=== PATIENT | female | born 1950 | race Caucasian/White ===

== ENCOUNTER → 2023-07-16 07:17 | Outpatient (REF) | payer MEDICARE, OTHER, SELFPAY | LOC: RCS 07:17 | PROVIDERS: ATTENDING PHYSICIAN Internal Medicine Cardiovascular Disease; FAMILY PHYSICIAN Internal Medicine | DX: R00.2 Palpitations (principal); R06.02 Shortness of breath | CPT/HCPCS: 78452; 93017; A9500 ==

== ENCOUNTER 2023-08-04 06:09 | Day surgery (SDC) | payer MEDICARE, OTHER, SELFPAY ==
[2023-08-04] VITALS (12 sets, daily range): BP systolic 120–147; BP diastolic 72–84; BMI 25.8
[2023-08-04 06:43] LABS: Hematocrit 36.7 % (37.0-47.0); Hemoglobin 12.2 g/dL (12.0-16.0); Mean Corp Hgb Conc. 33.2 g/dL (33.0-37.0); Mean Corpuscular Hgb 30.1 pg (27.0-31.0); Mean Corpuscular Volume 90.6 fL (81.0-99.0); Mean Platelet Volume 8.5 fL (7.4-10.4); Platelet Count 295 10^3/uL (130-400); Red Blood Cell Count 4.05 10^6/uL (4.20-5.40); Red Cell Dist. Width 13.1 % (11.5-14.5); White Blood Cell Count 4.6 10^3/uL (4.8-10.8)
[2023-08-04] MEDS: NSS 211 ML IV (06:49)
[2023-08-04 06:54] LABS: Blood Urea Nitrogen 15 mg/dl (7-17); Calcium 9.6 mg/dl (8.4-10.2); Carbon Dioxide 26 mmol/L (22-30); Chloride 95 mmol/L (98-107); Estimated Creatinine Clearance 55 ml/min; Glucose 99 mg/dl (70-99); Potassium 4.2 mmol/L (3.5-5.1); Sodium 131 mmol/L (135-145); eGFR > 60.00
[2023-08-04] MEDS: NSS 1000 IV (08:18)
--- NOTE | 2023-08-04 08:32 | ITS.CL.CATH ---
Drilling Engineer - Catheterization
Cardiac Catheterization
Procedure Report:
LEFT AND RIGHT HEART CATHETERIZATION
Date of Procedure: August 04, 2023
Referring: German Mann
PROCEDURES:
1. Left heart catheterization, coronary angiogram.
2. Right heart catheterization.
3. Ultrasound-guided access
INDICATION: Ongoing dyspnea on exertion
ACCESS:
1. Right radial artery, 5 Tamazight sheath, under ultrasound guidance.
2. Right brachial vein, 6 Tamazight sheath, under ultrasound-guided
HEMODYNAMICS : (mmHg)
RA (m) : 8
RV (s/d,m) : 32/8, 12
PA (s/d, m) : 32/16, 23
PCWP (m) : 13
PA saturation: 68.9% on room air
AO saturation: 95.6% on room air
RA saturation: 64.5% on room air
Cardiac Output : 3.89 L/min
Cardiac Index : 2.2 L/min/m-2
Systemic vascular resistance: 1976 dsc^(-5)
Pulmonary vascular resistance: 3.35 isaac unit
AO (s/d) : 142/73
CORONARY FINDINGS
DOMINANCE: Right
LEFT MAIN: The left main artery is a large-caliber vessel which gives rise to the left anterior descending artery on the left circumflex artery. Angiographically normal vessel.
LEFT ANTERIOR DESCENDING: The left into descending artery is a large-caliber vessel which gives rise to multiple small to medium caliber diagonal branches as it courses through the anterior interventricular groove and wraps around the apex. There
is moderate degree of tortuosity with minimal luminal irregularities.
CIRCUMFLEX: The left circumflex artery is moderate-severely tortuous, medium in caliber which gives rise to 1 major of twos marginal branch. Angiographically normal vessel.
RIGHT CORONARY ARTERY: The right coronary artery is a large-caliber, dominant vessel which gives rise to the right posterior descending artery and the right posterolateral system. There is minimal luminal irregularities.
SEDATION: 42 minutes of procedural sedation was utilized. An independent medical planner was present to assist with and help manage the patient's level of consciousness and physiologic status.
RADIATION SUMMARY: Fluoro Time (min): 4.2, Dose (mGy): 190.5, DAP (Gy.cm2) : 16.3
Closure Device: Vascular annular right radial artery, 10 cc of urine
CONCLUSIONS
1. No obstructive coronary artery disease.
2. Near normal right and left-sided filling pressures with normal cardiac output.
RECOMMENDATIONS
1. Continued modification of cardiovascular risk factors.
2. Wean radial band per protocol.
3. Given no clear etiology from a cardiac standpoint of ongoing dyspnea on exertion, to consider possible pulmonary workup as warranted.
Copy to: German Mann
Brooklynn Ugalde MD, FACC, [facility]
== END 2023-08-04 10:52 | disposition home or self-care (01) ==
LOC: CATH 06:09
PROVIDERS: Internal Medicine Interventional Cardiology; ATTENDING PHYSICIAN Internal Medicine Interventional Cardiology; FAMILY PHYSICIAN Internal Medicine
DX: R06.09 Other forms of dyspnea (principal); R00.2 Palpitations; I10 Essential (primary) hypertension; E78.00 Pure hypercholesterolemia, unspecified
CPT/HCPCS: 76937; 80048; 85027; 93456; 99152; 99153; C1769; C1894; Q9967

== ENCOUNTER → 2023-10-01 08:23 | Outpatient (REF) | payer MEDICARE, OTHER, SELFPAY | LOC: RCS 08:23 | PROVIDERS: ATTENDING PHYSICIAN Internal Medicine Cardiovascular Disease; FAMILY PHYSICIAN Internal Medicine | DX: R06.02 Shortness of breath (principal) | CPT/HCPCS: 93306 ==

== ENCOUNTER → 2023-12-21 08:04 | Outpatient (REF) | payer MEDICARE, OTHER, SELFPAY | LOC: WDC 08:04 | PROVIDERS: ATTENDING PHYSICIAN Internal Medicine | DX: Z12.31 Encounter for screening mammogram for malignant neoplasm of breast (principal) | CPT/HCPCS: 77063; 77067 ==

== ENCOUNTER → 2024-01-21 13:54 | Outpatient (REF) | payer MEDICARE, OTHER, SELFPAY | LOC: WDC 13:54 | PROVIDERS: ATTENDING PHYSICIAN Internal Medicine | DX: N64.59 Other signs and symptoms in breast (principal) | CPT/HCPCS: 76642 ==

== ENCOUNTER → 2024-01-28 09:15 | Outpatient (REF) | payer MEDICARE, OTHER, SELFPAY | LOC: RAD 09:15 | PROVIDERS: ATTENDING PHYSICIAN Internal Medicine; REFERRING PHYSICIAN Internal Medicine Rheumatology | DX: Z78.0 Asymptomatic menopausal state (principal) | CPT/HCPCS: 77080 ==

== ENCOUNTER → 2024-03-24 07:52 | Outpatient (REF) | payer MEDICARE, OTHER, SELFPAY | LOC: WDC 07:52 | PROVIDERS: ATTENDING PHYSICIAN Surgery; FAMILY PHYSICIAN Internal Medicine | DX: N64.4 Mastodynia (principal); N64.59 Other signs and symptoms in breast | CPT/HCPCS: 76642 ==

== ENCOUNTER 2024-08-31 12:05 | Day surgery (SDC) | payer MEDICARE, OTHER, SELFPAY | END 2024-08-31 15:26 | disposition home or self-care (01) | LOC: GI 12:05 | PROVIDERS: ATTENDING PHYSICIAN Internal Medicine; FAMILY PHYSICIAN Internal Medicine | DX: Z12.11 Encounter for screening for malignant neoplasm of colon (principal); R15.9 Full incontinence of feces; R19.4 Change in bowel habit; K51.40 Inflammatory polyps of colon without complications; R13.14 Dysphagia, pharyngoesophageal phase; Q39.9 Congenital malformation of esophagus, unspecified; K44.9 Diaphragmatic hernia without obstruction or gangrene; K22.2 Esophageal obstruction; K31.89 Other diseases of stomach and duodenum | CPT/HCPCS: 43249; 43239; 45385; 88305; 88342 ==

== ENCOUNTER 2024-10-15 07:57 | Emergency (ER) | payer MEDICARE, OTHER, SELFPAY ==
[2024-10-15 08:08] VITALS: BP 137/81
[2024-10-15 10:22] VITALS: BP 160/86; BMI 27.9
[2024-10-15] MEDS: TORADOL 15 MG IV (10:30)
[2024-10-15] MEDS: DECADRON 10 MG IV (10:30)
--- NOTE | 2024-10-15 10:33 | ED.GENMED ---
History of Present Illness
General
Chief Complaint: Back Pain
Source: patient
Exam Limitations: none
Time Seen by Provider: 10/15/24 09:52
Nursing documentation reviewed up to this point in time: agreed with
History of Present Illness
History of Present Illness:
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
extending down the leg, presents for right buttock pain, radiating down to foot, last night developed 'pins and needles' down the leg into the foot. Pain was relieved with a Prednisone taper that ended 4 days ago and symptoms have returned. Symptoms
started a month ago, denies any bowel or bladder control issues or numbness in the saddle area denies weakness in legs. She has been taking [id number] ibuprofen (400 mg) with little pain relief. Denies fever.
Has appt with orthopedics on 10/20.
Patient states medications are as follows
- Metoprolol 25 mg once daily
- Rosuvastatin
- Levothyroxine
- Celecoxib
Past History
Past History
ED Past Medical History: HTN, Hypercholesterolemia, Psychiatric (anxiety depression) and Other (Osteoarthritis, thyroid disorder, osteoporosis)
ED Past Surgical History: Gynecological and Orthopedic
Social History
Tobacco: Non-smoker
Alcohol: Occasional
Personal:
Living: with family
Employment: Retired
Family History
Family History: Negative CAD
Review of Systems
Review of Systems
Allergies reviewed?: Yes
All Other Systems: ROS reviewed and negative except as documented in HPI and ROS
Constitutional: Denies fever or chills
Respiratory: Denies trouble breathing
Cardiac: Denies chest pain
ABD/GI: Denies abdominal pain, nausea, vomiting or diarrhea
: Denies incontinence or difficulty voiding
Musculoskeletal: Reports other (pain right buttock down right leg)
Skin: Reports no symptoms
Neurological: Reports no symptoms
Phy Exam
Physical Exam
Physical Exam:
GENERAL: No acute distress. A&Ox3.
CONSTITUTIONAL: Afebrile.
EYES: clear, conjunctivae normal
ENMT: moist mucus membranes
RESPIRATORY: Regular respirations, nonlabored, lungs clear.
CARDIOVASCULAR: Regular rate and rhythm, no murmurs, no rubs.
GI: Soft, nontender, normal BS
MUSCULOSKELETAL: Moves with ease. Well perfused. Tender to palpation along mid buttock. Normal bilateral straight leg raise. Full range of motion of lower extremities. Ambulates well with steady gait.
SKIN: Warm, dry, pink
PSYCH: Normal mood and affect. Well kept, interactive and appropriate
NEUROLOGIC: Awake, alert and oriented. Strength equal throughout. Patellar reflexes equal and normal, sensation to touch equal bilaterally. No focal neurological deficits
Course
Orders/Labs/Results
Orders:
Orders
10/15/24 10:27
Dexamethasone Sod Phosphate [Decadron] 10 mg IV NOW STA
Ketorolac [Toradol] 15 mg IV NOW STA
10/15/24 12:16
Cyclobenzaprine HCl [Flexeril] 10 mg PO NOW STA
Vital Signs
Initial and Last Documented VS:
Initial Vital Signs
Temp Pulse Resp BP Pulse Ox
97.6 F 91 16 137/81 97
10/15/24 08:08 10/15/24 08:08 10/15/24 08:08 10/15/24 08:08 10/15/24 08:08
Last Documented Vital Signs
Temp Pulse Resp BP Pulse Ox
97.6 F 84 18 160/86 97
10/15/24 08:08 10/15/24 10:22 10/15/24 10:22 10/15/24 10:22 10/15/24 10:42
MDM/Problems Addressed
Differential Diagnosis Includes:
Lumbar radiculopathy, sciatica, herniated disc
MDM/Problems Addressed:
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
extending down the leg, presents for right buttock pain, radiating down to foot, last night developed 'pins and needles' down the leg into the foot. Pain was relieved with a Prednisone taper that ended 4 days ago and symptoms have returned. Symptoms
started a month ago, denies any bowel or bladder control issues or numbness in the saddle area denies weakness in legs. She has been taking [id number] ibuprofen (400 mg) with little pain relief. Denies fever.
Has appt with orthopedics on 10/20.
Afebrile, no infectious symptoms, NAD
No neurological deficits, no cauda equina
Plan:
- Administration of intravenous Toradol as a pain management strategy.
- intravenous dose of dexamethasone as discussed.
- Since prednisone taper helped alleviate the pain, prescribe second prednisone taper
- Short burst of hydrocodone
Pt is in agreement with this plan
12:30 PM:
Patient not feeling much better but she is out of bed and ambulating
Prescription for hydrocodone, prednisone taper sent to her pharmacy
1 dose of Flexeril given here as she was saying she was having spasms in the right buttock area and this has helped in the past
Patient discharged via wheelchair
*Pulse Oximetry
SaO2: 97
Oxygen Mode of Delivery: Room air
Patient hypoxic: not evaluated
*Critical Care Note
Total Time (30-74mins, 75-104mins- exclusive of procedures): Not Applicable
ED Attending Note
-
Portions of this chart may have been created with voice recognition software.� Occasional wrong word or��sound alike� substitutions may have occurred due to the inherent limitations of voice recognition software.
Discharge Plan
Departure
Patient Disposition: Home (Routine Discharge)
Date of Disposition: 10/15/24
Time of Disposition: 12:23
Patient with high blood pressure during this ER visit?: No
Condition: Fair
Discharge Problem:
Right sided sciatica
Instructions: Sciatica (DC)
Prescriptions:
New
prednisone 10 mg Tablet
See Rx Instructions .ROUTE .COMPLEX Qty: 30 0RF
Rx Instructions:
Take By Mouth:
40 mg daily x3 days, 30 mg daily x3 days,
20 mg daily x3 days, 10 mg daily x3 days.
hydrocodone-acetaminophen 5-325 mg tablet
1 tab PO Q6H PRN (Reason: Pain) Qty: 5 0RF
No Action
geriatric multivitamin-min 1 CAP capsule
1 cap PO DAILY
Zoloft
50 mg PO DAILY
metoprolol tartrate 25 MG tablet
50 mg PO DAILY
Crestor:
40 mg PO DAILY
calcium carbonate-vitamin D3 [Calcium 500 + D] 1 EACH tablet
1 ea PO DAILY
acetaminophen [Tylenol Extra Strength] 500 MG tablet
1,000 mg PO QID Qty: 0 0RF
levothyroxine 75 MCG tablet
75 mcg PO DAILY@0700 Qty: 0 0RF
magnesium hydroxide 30 ML suspension
30 ml PO DAILYPRN PRN (Reason: constipation) Qty: 0 0RF
famotidine 20 MG tablet
20 mg PO PRN PRN (Reason: acid reflux)
ibuprofen 200 MG capsule
400 mg PO BID PRN (Reason: pain)
lidocaine 5 % adhesive patch,medicated
1 patch topical DAILY Qty: 15 0RF
Rx Instructions:
remove after 12 hrs
aspirin 81 mg Tablet,Chewable
81 mg DAILY
Referrals:
[facility] orthopedics [Other] - Keep scheduled appt
Nancy Carver MD [Family Provider, Internal Medicine]
Activity Restrictions/Additional Instructions:
As we discussed, I sent a prescription to your pharmacy for a prednisone taper and for [place] which is hydrocodone. Ibuprofen 600 mg, with food, every 6 hours as needed for mild to moderate pain and use the hydrocodone if needed for worse pain.
Start the prednisone tomorrow as you were given a dose of steroid here today. It may take 12 to 24 hours for the steroid to kick in.
Keep your appointment with your orthopedic doctor next week.
Return here immediately for loss of bowel or bladder control, weakness in the leg, fever or feeling sicker in any way.
Interventions
Interventions:
*Risk Screen - Suicide Last Done: 10/15/24 08:15
*General Assessment Last Done: 10/15/24 08:15
*ED COVID-19 Vaccine History Last Done: 10/15/24 08:15
*Nursing Disposition Last Done: 10/15/24 12:36
ED-Musculoskeletal Assessment Last Done: 10/15/24 10:22
Discharge Date and Time
Discharge Date/Time: 10/15/24 12:37
Print Language: ITALIAN
[2024-10-15] MEDS: FLEXERIL 10 MG PO (12:22)
== END 2024-10-15 12:37 | disposition home or self-care (01) ==
LOC: EMR 07:57
PROVIDERS: EMERGENCY PHYSICIAN Emergency Medicine; FAMILY PHYSICIAN Internal Medicine
DX: M54.31 Sciatica, right side (principal); E78.00 Pure hypercholesterolemia, unspecified; E03.9 Hypothyroidism, unspecified; I10 Essential (primary) hypertension; M19.90 Unspecified osteoarthritis, unspecified site; M81.0 Age-related osteoporosis without current pathological fracture; Z79.899 Other long term (current) drug therapy
CPT/HCPCS: 99282; 96374; 96375

== ENCOUNTER 2024-11-12 09:53 | Emergency (ER) | payer MEDICARE, OTHER, SELFPAY ==
[2024-11-12 09:56] VITALS: BP 147/97
--- NOTE | 2024-11-12 10:02 | ED.GENMED ---
History of Present Illness
<Kedar Emery DO - Last Filed: 11/12/24 14:14>
General
Chief Complaint: Weakness
Time Seen by Provider: 11/12/24 10:02
<Ida Eduardo DO, Resident - Last Filed: 11/12/24 14:51>
General
Source: patient and significant other
Exam Limitations: none
Nursing documentation reviewed up to this point in time: agreed with
History of Present Illness
History of Present Illness:
Patient is a 74-year-old female presenting with weakness. Patient incidentally had back surgery 2 weeks ago for herniated disc at [place]. Patient has not felt well since. Patient was hospitalized last week down the [facility] [place] for weakness and found
to have a sodium of 126. She was admitted, her sodium was normalized, and she left the next day. On Wednesday she had a sodium check and it was 137. Today patient feels similar weakness, decreased appetite, nausea, headaches, and mentions new
heart palpitations both on exertion and at rest. Patient denies diarrhea. Patient was constipated after surgery for 6 days, but is now having regular bowel movements. Patient is also having back pain that is managed with Tylenol, although she did
have to take oxycodone last night to fall asleep.
Past History
<Kedar Emery DO - Last Filed: 11/12/24 14:14>
Past History
ED Past Medical History: HTN, Hypercholesterolemia, Psychiatric (anxiety depression) and Other (Osteoarthritis, thyroid disorder, osteoporosis)
ED Past Surgical History: Gynecological and Orthopedic
Social History
Tobacco: Non-smoker
Alcohol: Occasional
Personal:
Living: with family
Employment: Retired
Family History
Family History: Negative CAD
Review of Systems
<Ida Eduardo DO, Resident - Last Filed: 11/12/24 14:51>
Review of Systems
Allergies reviewed?: Yes
All Other Systems: ROS reviewed and negative except as documented in HPI and ROS
Constitutional: Reports fatigue
EENT: Reports no symptoms
Respiratory: Reports no symptoms
Cardiac: Reports palpitations (New since surgery 2 weeks ago)
ABD/GI: Reports nausea
: Reports no symptoms
Musculoskeletal: Reports other (Generalized muscle weakness)
Skin: Reports no symptoms
Neurological: Reports no symptoms
Endocrine: Reports no symptoms
Hematologic/Lymphatic: Reports no symptoms
Psychiatric: Reports no symptoms
Phy Exam
<Ida Eduardo DO, Resident - Last Filed: 11/12/24 14:51>
General Physical Exam
General Presentation: well appearing and no apparent distress
General age: appears stated age
General Skin: warm and dry
General Habitus: normal
Cardiovascular Exam
Cardiovascular Exam: regular rate/rhythm
Heart Sounds: normal
Pulmonary Exam
Pulmonary Exam: lungs clear and no respiratory distress
Gastrointestinal Exam
Gastrointestinal Exam: normal bowel sounds, non tender and soft
Neurological Exam
Neurological Exam: alert and oriented x3
Skin Exam
Skin Exam: normal color and warm/dry
Psychiatric Exam
Psychiatric Exam: normal mood/affect
Course
<Kedar Emery DO - Last Filed: 11/12/24 14:14>
Orders/Labs/Results
Orders:
Orders
11/12/24 10:24
Electrocardiogram (*1) Urgent
Reason for Study: Palpitations
EKG- Treatment ONCE
11/12/24 10:27
Complete Blood Count/With Diff Urgent
Comprehensive Metabolic Panel Urgent
TSH Reflex To Free T4 Urgent
11/12/24 10:32
0.9% Sodium Chloride 500 ml [Nss] 500 ml IV BOLUS
11/12/24 11:47
Acetaminophen [Tylenol] 1,000 mg PO NOW STA
11/12/24 11:48
CT Head W/o Iv Contrast Urgent
Comment:
Reason For Exam: new onset head ache
11/12/24 12:03
COVID-19 Antigen Stat
Source: Nasal Swab
Influenza A+B Rapid Molecular Urgent
SNEHAL Source: Nasal Swab
Specimen Description:
11/12/24 13:05
Lorazepam [Ativan] 0.5 mg IV NOW STA
11/12/24 13:24
Alprazolam [Xanax] 0.5 mg PO NOW STA
Abnormal Lab Results
11/12/24
10:27
RBC 3.76 L 10^6/uL
(4.20-5.40)
Hgb 11.4 L g/dL
(12.0-16.0)
Hct 32.9 L %
(37.0-47.0)
Absolute Lymphs (auto) 0.7 L 10^3/uL
(1.2-3.4)
Lymphocytes % 13.6 L %
(20.5-51.1)
Sodium 129 L mmol/L
(135-145)
Chloride 96 L mmol/L
(98-107)
Glucose 163 H mg/dl
(70-99)
AST 38 H U/L
(14-36)
11/12/24 10:27
11/12/24 10:27
Vital Signs
Initial and Last Documented VS:
Initial Vital Signs
Temp Pulse Resp BP Pulse Ox
98.4 F 101 18 147/97 97
11/12/24 09:56 11/12/24 09:56 11/12/24 09:56 11/12/24 09:56 11/12/24 09:56
Last Documented Vital Signs
Temp Pulse Resp BP Pulse Ox
98.4 F 73 19 164/78 95
11/12/24 09:56 11/12/24 12:15 11/12/24 12:15 11/12/24 12:00 11/12/24 12:15
<Ida Eduardo DO, Resident - Last Filed: 11/12/24 14:51>
Orders/Labs/Results
Orders:
Orders
11/12/24 10:24
Electrocardiogram (*1) Urgent
Reason for Study: Palpitations
EKG- Treatment ONCE
11/12/24 10:27
Complete Blood Count/With Diff Urgent
Comprehensive Metabolic Panel Urgent
TSH Reflex To Free T4 Urgent
11/12/24 10:32
0.9% Sodium Chloride 500 ml [Nss] 500 ml IV BOLUS
11/12/24 11:47
Acetaminophen [Tylenol] 1,000 mg PO NOW STA
11/12/24 11:48
CT Head W/o Iv Contrast Urgent
Comment:
Reason For Exam: new onset head ache
11/12/24 12:03
COVID-19 Antigen Stat
Source: Nasal Swab
Influenza A+B Rapid Molecular Urgent
SNEHAL Source: Nasal Swab
Specimen Description:
11/12/24 13:05
Lorazepam [Ativan] 0.5 mg IV NOW STA
11/12/24 13:24
Alprazolam [Xanax] 0.5 mg PO NOW STA
Abnormal Lab Results
11/12/24
10:27
RBC 3.76 L 10^6/uL
(4.20-5.40)
Hgb 11.4 L g/dL
(12.0-16.0)
Hct 32.9 L %
(37.0-47.0)
Absolute Lymphs (auto) 0.7 L 10^3/uL
(1.2-3.4)
Lymphocytes % 13.6 L %
(20.5-51.1)
Sodium 129 L mmol/L
(135-145)
Chloride 96 L mmol/L
(98-107)
Glucose 163 H mg/dl
(70-99)
AST 38 H U/L
(14-36)
11/12/24 10:27
11/12/24 10:27
Vital Signs
Initial and Last Documented VS:
Initial Vital Signs
Temp Pulse Resp BP Pulse Ox
98.4 F 101 18 147/97 97
11/12/24 09:56 11/12/24 09:56 11/12/24 09:56 11/12/24 09:56 11/12/24 09:56
Last Documented Vital Signs
Temp Pulse Resp BP Pulse Ox
98.4 F 73 19 164/78 95
11/12/24 09:56 11/12/24 12:15 11/12/24 12:15 11/12/24 12:00 11/12/24 12:15
<Ida Eduardo DO, Resident - Last Filed: 11/12/24 14:51>
MDM/Problems Addressed
Differential Diagnosis Includes:
Generalized weakness
MDM/Problems Addressed:
Overall labs unremarkable. Sodium is 129, when adjusted for glucose it is 130. EKG negative. Ordered CT head due to new onset headache- no evidence of acute intracranial abnormality. COVID/flu negative. Gave 500 mL normal saline bolus with no
improvement of symptoms. Gave Tylenol 1 g with no improvement of symptoms. Patient started to feel anxious we gave her Xanax with little improvement of symptoms.
<Kedar Emery DO - Last Filed: 11/12/24 14:14>
*Pulse Oximetry
SaO2: 97
Oxygen Mode of Delivery: Room air
<Ida Eduardo DO, Resident - Last Filed: 11/12/24 14:51>
*Pulse Oximetry
Patient hypoxic: no
*Critical Care Note
Total Time (30-74mins, 75-104mins- exclusive of procedures): Not Applicable
ED Attending Note
<Kedar Mcdowell Yuly, DO - Last Filed: 11/12/24 14:14>
ED Attending Note
Patient seen and examined by attending physician: Yes
I performed a history and physical exam of patient and discussed management with resident, I reviewed resident's note and agree with documented findings and plan of care.: Yes
ED Attending Note:
I evaluated the patient at bedside. White count is normal, hemoglobin 11.4, sodium only slightly low at 129 which may or may not be related to some dehydration. She was given 500 mL of saline. TSH is normal. EKG shows a sinus rhythm with a
ventricular rate of 83, left axis deviation and nonspecific ST abnormality.
Unclear etiology of patient's symptoms. She was given IV fluids. COVID and flu negative. Brain CT unremarkable.
I did consider admission to the hospital. However there is no clear indication for admission to the hospital. We spoke to the hospitalist team. They did suggest fluid restriction to 40 to 48 ounces per day. I initially gave fluids because the
patient had poor p.o. intake. She was given a dose of Xanax and then later felt improved. The patient ultimately preferred to just be discharged at this time.
-
Portions of this chart may have been created with voice recognition software.� Occasional wrong word or��sound alike� substitutions may have occurred due to the inherent limitations of voice recognition software.
Discharge Plan
Departure
Patient Disposition: Home (Routine Discharge)
Date of Disposition: 11/12/24
Time of Disposition: 13:18
Patient with high blood pressure during this ER visit?: Yes
Discharge Problem:
Weakness
Instructions: Generalized Weakness (DC), BLOOD PRESSURE
Prescriptions:
No Action
geriatric multivitamin-min 1 CAP capsule
1 cap PO DAILY
Zoloft
50 mg PO DAILY
metoprolol tartrate 25 MG tablet
50 mg PO DAILY
Crestor:
40 mg PO DAILY
calcium carbonate-vitamin D3 [Calcium 500 + D] 1 EACH tablet
1 ea PO DAILY
acetaminophen [Tylenol Extra Strength] 500 MG tablet
1,000 mg PO QID Qty: 0 0RF
levothyroxine 75 MCG tablet
75 mcg PO DAILY@0700 Qty: 0 0RF
magnesium hydroxide 30 ML suspension
30 ml PO DAILYPRN PRN (Reason: constipation) Qty: 0 0RF
famotidine 20 MG tablet
20 mg PO PRN PRN (Reason: acid reflux)
ibuprofen 200 MG capsule
400 mg PO BID PRN (Reason: pain)
lidocaine 5 % adhesive patch,medicated
1 patch topical DAILY Qty: 15 0RF
Rx Instructions:
remove after 12 hrs
aspirin 81 mg Tablet,Chewable
81 mg DAILY
prednisone 10 mg Tablet
See Rx Instructions .ROUTE .COMPLEX Qty: 30 0RF
Rx Instructions:
Take By Mouth:
40 mg daily x3 days, 30 mg daily x3 days,
20 mg daily x3 days, 10 mg daily x3 days.
hydrocodone-acetaminophen 5-325 mg tablet
1 tab PO Q6H PRN (Reason: Pain) Qty: 5 0RF
Referrals:
Nancy Carver MD [Family Provider, Internal Medicine]
Liz Britt MD [Active, Nephrology]
Activity Restrictions/Additional Instructions:
Please return to Emergency Department with any worsening symptoms.
Interventions
Interventions:
*Risk Screen - Suicide Last Done: 11/12/24 09:56
*General Assessment Last Done: 11/12/24 09:56
*Neglect/Abuse Screening Last Done: 11/12/24 09:56
*ED- Fall Risk Assessment Last Done: 11/12/24 10:13
*ED COVID-19 Vaccine History Last Done: 11/12/24 10:13
*Nursing Disposition Last Done: 11/12/24 14:42
ED- Cardiac Assessment Last Done: 11/12/24 10:13
ED- Neurological Assessment Last Done: 11/12/24 10:13
ED- Pulmonary Assessment Last Done: 11/12/24 10:13
Discharge Date and Time
Discharge Date/Time: 11/12/24 14:43
Print Language: KAZAKH
[2024-11-12 10:13] VITALS: BMI 27.8
[2024-11-12 10:20] VITALS: BP 148/84
[2024-11-12 10:35] LABS: Hematocrit 32.9 % (37.0-47.0); Hemoglobin 11.4 g/dL (12.0-16.0); Mean Corp Hgb Conc. 34.7 g/dL (33.0-37.0); Mean Corpuscular Volume 87.5 fL (81.0-99.0); Nucleated Red Blood Cells % 0 %; Platelet Count 361 10^3/uL (130-400); Red Cell Dist. Width 14.1 % (11.5-14.5)
[2024-11-12 10:51] LABS: ALT (SGPT) 33 U/L (0-35); AST (SGOT) 38 U/L (14-36); Albumin 4.1 g/dl (3.5-5.0); Alkaline Phosphatase 65 U/L (38-126); Blood Urea Nitrogen 12 mg/dl (7-17); Calcium 8.9 mg/dl (8.4-10.2); Carbon Dioxide 24 mmol/L (22-30); Chloride 96 mmol/L (98-107); Estimated Creatinine Clearance 70 ml/min; Glucose 163 mg/dl (70-99); Potassium 4.0 mmol/L (3.5-5.1); Sodium 129 mmol/L (135-145); Total Protein 6.6 g/dl (6.3-8.2); eGFR > 60.00
[2024-11-12] MEDS: NSS 500 IV (10:59)
[2024-11-12 11:00] VITALS: BP 147/95
[2024-11-12 12:00] VITALS: BP 164/78
[2024-11-12] MEDS: TYLENOL 1000 MG PO (12:03)
[2024-11-12 12:41] LABS: COVID-19 Antigen Negative (Negative)
[2024-11-12] MEDS: XANAX 0.5 MG PO (13:40)
== END 2024-11-12 14:43 | disposition home or self-care (01) ==
LOC: EMR 09:53
PROVIDERS: EMERGENCY PHYSICIAN Emergency Medicine; FAMILY PHYSICIAN Internal Medicine
DX: R53.1 Weakness (principal); E78.00 Pure hypercholesterolemia, unspecified; I10 Essential (primary) hypertension
CPT/HCPCS: 96360; 99284; 70450; 80053; 84443; 85025; 87502; 87811; 93005

== ENCOUNTER → 2025-01-31 08:06 | Outpatient (REF) | payer MEDICARE, OTHER, SELFPAY | LOC: WDC 08:06 | PROVIDERS: ATTENDING PHYSICIAN Internal Medicine | DX: Z12.31 Encounter for screening mammogram for malignant neoplasm of breast (principal) | CPT/HCPCS: 77063; 77067 ==